=== PATIENT | male | born 1985 | race Caucasian/White ===

== ENCOUNTER 2024-11-06 21:31 | Emergency (ER) | payer MEDICAID ==
[~2024-11-06] VITALS: Ht 175.3 cm; Wt 155.0 kg
[2024-11-06 21:53] VITALS: BP 162/103; PULSE 93; RESP 18; TEMP 36.9; O2SAT 99
[2024-11-06] MEDS ORDERED: IBUP-2030 MT (23:18)
== END 2024-11-07 00:47 | disposition home or self-care (01) ==
LOC: ER 21:31
DX: S83.91XA Sprain of unspecified site of right knee, initial encounter (principal); M17.11 Unilateral primary osteoarthritis, right knee; X58.XXXA Exposure to other specified factors, initial encounter; Y93.01 Activity, walking, marching and hiking; Y92.89 Other specified places as the place of occurrence of the external cause; Y99.8 Other external cause status
CPT/HCPCS: 73562; 99283